=== PATIENT | female | born 1970 | race Caucasian/White ===

== ENCOUNTER 2021-05-06 08:43 | Outpatient (CLI) | payer OTHER ==
--- NOTE | 2021-05-06 10:36 | Ultrasound Report ---
PROCEDURE: Abdomen Complete INDICATIONS: ABDOMINAL DISTENTION, ABD PAIN TECHNIQUE: Real-time scanning was performed of the abdominal and retroperitoneal organs, with image documentatio n. COMPARISON: None. FINDINGS: Liver: Liver is normal in size and homogeneous in echotexture. Gallbladder: No gallbladder wall thickening or pericholecystic fluid. No shadowing gallstones. Biliary ducts: Intrahepatic bile ducts are non-dilated. Extrahepatic bile duct caliber measures 4.4 mm. Normal is 6-7 mm or less in diameter, or 10 mm or less post-cholecystectomy. Pancreas: Visualized portions of the pancreas are sonographically normal. Spleen: Spleen is normal in size and homogeneous in echotexture. Kidneys: Kidneys are normal in size and echotexture. Right kidney measures 10.5 cm long; left kidne y measures 10.2 cm long. No hydronephrosis or nephrolithiasis. No solid masses. Aorta: Visualized aorta is normal in caliber at less than 3 cm. Iliacs: Proximal common iliac arteries are normal in caliber at less than 2.5 cm. IVC: Intrahepatic inferior vena cava is patent. Miscellaneous: No free abdominal fluid. IMPRESSION: No significant abnormality. Reviewed by: Patric Hannah MD on 05/06/2021 10:34 AM PDT Approved by: Patric Hannah MD on 05/06/2021 10:34 AM PDT Station ID: [id number]
--- NOTE | 2021-05-06 11:49 | Ultrasound Report ---
PROCEDURE: Pelvic w/Transvaginal INDICATIONS: LOWER PELVIC PAIN AND BLOATING TECHNIQUE: Real-time scanning was performed of the pelvic organs, with image documentation. Additional endovagi nal scanning was necessary due to incomplete visualization of the adnexal and endometrial structures by transabdominal scanning. COMPARISON: None. TECHNIQUE: Transabdominal and endovaginal sonographic evaluation of the pelvis was performed. FINDINGS: UTERUS: Anteverted, coarsened echotexture, and measures 9.7 x 5 x 6.9 cm. Prominence of the endometri al stripe, measuring up to 14.8 mm. Small amount of fluid is seen within the cervical canal. Hypoecho ic lesions are seen in the cervix, compatible with nabothian cyst. RIGHT OVARY: 2.6 x 1.1 x 1.9 cm. Color-flow projects over the ovarian tissue. LEFT OVARY: 2.7 x 1.6 x 1.8 cm. Color-flow projects over the ovarian tissue. Hypoechoic lesion within the ovary, measuring up to 1.3 cm, compatible with a cyst. OTHER: None. IMPRESSION: 1.No significant sonographic abnormality. Reviewed by: Patric Hannah MD on 05/06/2021 11:48 AM PDT Approved by: Patric Hannah MD on 05/06/2021 11:48 AM PDT Station ID: [id number]
== END 2021-05-06 08:44 | disposition home or self-care (01) ==
LOC: DI 08:43
PROVIDERS: ATTEND Internal Medicine Gastroenterology
DX: R14.0 Abdominal distension (gaseous) (principal); R10.9 Unspecified abdominal pain

== ENCOUNTER 2022-07-30 09:24 | Outpatient (CLI) | payer OTHER ==
[2022-07-30 09:38] LABS: BASOPHILS % (AUTO) 0.7 %; EOSINOPHILS # (AUTO) 0.5 10^3/uL (0.0-0.7); EOSINOPHILS % (AUTO) 8.3 %; HCT - HEMATOCRIT 38.2 % (37.0-47.0); HGB - HEMOGLOBIN 12.2 g/dL (12.0-16.0); LYMPHOCYTES # (AUTO) 2.4 10^3/uL (1.5-3.5); LYMPHOCYTES % (AUTO) 40.8 %; MEAN CORPUSCULAR HEMOGLOBIN 26.2 pg (27.0-31.0); MEAN CORPUSCULAR HGB CONC 31.9 g/dL (32.0-36.0); MONOCYTES # (AUTO) 0.4 10^3/uL (0.0-1.0); MONOCYTES % (AUTO) 6.9 %; NEUTROPHILS # (AUTO) 2.5 10^3/uL (1.5-6.6); PLT - PLATELET COUNT 308 10^3/uL (130-450); RED BLOOD COUNT 4.66 10^6/uL (4.20-5.40); RED CELL DISTRIBUTION WIDTH 14.7 % (12.0-15.0); WHITE BLOOD COUNT 5.8 x10^3/uL (4.8-10.8)
[2022-07-30 09:58] LABS: ALBUMIN 4.1 g/dL (3.2-5.5); ALBUMIN/GLOBULIN RATIO 1.3 (1.0-2.2); ALKALINE PHOSPHATASE 63 IU/L (42-121); ALT ALANINE AMINOTRANSFERASE 21 IU/L (10-60); AST ASPARTATE AMINOTRANSFERASE 24 IU/L (10-42); BILIRUBIN,TOTAL 0.8 mg/dL (0.2-1.0); BUN - BLOOD UREA NITROGEN 16 mg/dL (6-20); CALCIUM 8.5 mg/dL (8.5-10.3); CARBON DIOXIDE - CO2 26 mmol/L (21-32); CHLORIDE 98 mmol/L (101-111); CREATININE 0.9 mg/dL (0.4-1.0); GFR - MDRD 66 (>89); GLUCOSE 97 mg/dL (70-100); POTASSIUM 3.8 mmol/L (3.5-5.0); SODIUM 132 mmol/L (135-145); TOTAL PROTEIN 7.2 g/dL (6.7-8.2)
[2022-07-30 10:00] LABS: CRP - C-REACTIVE PROTEIN < 1.0 mg/dL (0-1.0)
== END 2022-07-30 09:25 | disposition home or self-care (01) ==
LOC: LAB 09:24
PROVIDERS: ATTEND Nurse Practitioner
DX: M79.89 Other specified soft tissue disorders (principal)
CPT/HCPCS: 36415; 80053; 83880; 85025; 85651; 86140

== ENCOUNTER 2022-08-25 10:13 | Outpatient (CLI) | payer OTHER | END 2022-08-25 10:14 | disposition short-term general hospital (02) | LOC: EMS 10:13 | DX: R07.89 Other chest pain (principal); R68.84 Jaw pain; M54.2 Cervicalgia; R06.02 Shortness of breath; R03.0 Elevated blood-pressure reading, without diagnosis of hypertension | CPT/HCPCS: A0425; A0427 ==

== ENCOUNTER 2022-10-02 09:52 | Outpatient (CLI) | payer OTHER ==
--- NOTE | 2022-10-05 11:15 | Mammography Report ---
BILATERAL DIGITAL SCREENING MAMMOGRAM 3D/2D: 10/02/2022 CLINICAL: Routine screening. Baseline exam. No prior exams were available for comparison. There are scattered areas of fibroglandular density in both breasts (category b / 25%-50% glandular t issue). No significant masses, calcifications, or other findings are seen in either breast. IMPRESSION: NEGATIVE There is no mammographic evidence of malignancy. A 1 year screening mammogram is recommended. This exam was interpreted at Station ID: [id number]. NOTE: For mammograms, a report in lay terms will be sent to the patient. Approximately 15% of breast malignancies will not be visualized mammographically. In the management of a palpable breast mass, a negative mammogram must not discourage biopsy of a clinically suspicious lesion. Electronically Signed By: Nigel al/sushila:10/02/2022 16:29:13 letter sent: No_Letter ACR BI-RADS Category 1: Negative 3341F PARENCHYMAL PATTERN: (A) - The breast(s) demonstrate(s) scattered fibroglandular densities. BI-RADS CATEGORY: (1) - 1 Mammogram [id number] 1 year screening LATERALITY: (B)
== END 2022-10-02 09:53 | disposition home or self-care (01) ==
LOC: DI 09:52
PROVIDERS: ATTEND Physician Assistant
DX: Z12.31 Encounter for screening mammogram for malignant neoplasm of breast (principal)

== ENCOUNTER 2023-01-21 10:06 | Outpatient (CLI) | payer OTHER ==
--- NOTE | 2023-01-21 16:58 | Ultrasound Report ---
PROCEDURE: Pelvic w/Transvaginal INDICATIONS: ABN UTERINE BLEEDING TECHNIQUE: Real-time scanning was performed of the pelvic organs, with image documentation. Additional endovagi nal scanning was necessary due to incomplete visualization of the adnexal and endometrial structures by transabdominal scanning. COMPARISON: 05/06/2021. FINDINGS: Uterus: Uterus is retroverted and normal in size at 9.2 x 5.2 x 6.0 cm. The myometrium is heterogen eous. The endometrium measures 11.5 mm in combined thickness. No fibroids Ovaries: The right ovary measures 2.1 x 1.2 x 2.1 cm, with a calculated ovarian volume of 2.8 cc. T he left ovary measures 2.2 x 1.9 x 1.2 cm, with a calculated ovarian volume of 2.6 cc. The ovaries h ave a normal sonographic appearance. Less than 12 follicles can be seen in each ovary. No adnexal m asses are seen. No cystic lesions measuring greater than 3 cm. Other: No pathologic free abdominal or pelvic fluid. IMPRESSION: Prominent endometrium measuring 11.5 mm. Significance depends on whether or not the patient is postme nopausal. Reviewed by: Sung Adrian MD on 01/21/2023 4:57 PM PDT Approved by: uSng Adrian MD on 01/21/2023 4:57 PM PDT Station ID: [id number]
== END 2023-01-21 10:07 | disposition home or self-care (01) ==
LOC: DI 10:06
PROVIDERS: ATTEND Student in an Organized Health Care Education/Training Program
DX: N93.9 Abnormal uterine and vaginal bleeding, unspecified (principal); R93.89 Abnormal findings on diagnostic imaging of other specified body structures

== ENCOUNTER 2023-11-17 08:00 | Outpatient (CLI) | payer OTHER ==
--- NOTE | 2023-11-17 11:17 | XRAY Report ---
PROCEDURE: Ankle 3+V RT INDICATIONS: SPRAIN OF RIGHT ANKLE TECHNIQUE: 3 views of the ankle were acquired. COMPARISON: None. FINDINGS: Bones: No fractures or dislocations. Ankle mortise is normally aligned on nonweightbearing view. N o suspicious bony lesions. Soft tissues: No tibiotalar joint effusion. Achilles tendon appears normal. IMPRESSION: No acute bony abnormality. If there remains a high clinical concern for fracture, consider cross-sect ional imaging now. If pain persists, consider repeat x-ray in 10-14 days or cross-sectional imaging. Reviewed by: Dedrick Finch MD on 11/17/2023 11:16 AM PDT Approved by: Dedrick Finch MD on 11/17/2023 11:16 AM PDT Station ID: [id number]
== END 2023-11-17 23:59 | disposition home or self-care (01) ==
LOC: DI.S 08:00
PROVIDERS: ATTEND Emergency Medicine
DX: S93.411A Sprain of calcaneofibular ligament of right ankle, initial encounter (principal)

== ENCOUNTER 2024-04-04 11:14 | Outpatient (CLI) | payer OTHER ==
--- NOTE | 2024-04-05 11:27 | Mammography Report ---
BILATERAL DIGITAL SCREENING MAMMOGRAM 3D/2D: 04/04/2024 CLINICAL: Routine screening. Comparison is made to exam dated: 10/02/2022 mammogram - [facility]. There are scattered areas of fibroglandular density (category b / 25%-50% glandular tissue). No significant masses, calcifications, or other findings are seen in either breast. There has been no significant interval change. IMPRESSION: NEGATIVE There is no mammographic evidence of malignancy. A 1 year screening mammogram is recommended. Based on the Tyrer Cuzick model (a risk assessment model) the patient's lifetime risk is 16.5% and he r 10 year risk is 4.9%. According to the ACR, ACS, and NCCN guidelines, an annual breast MRI exam bashir ng with mammogram is recommended if the patient's lifetime risk is 20% or greater. This exam was interpreted at Station ID: [id number]. NOTE: For mammograms, a report in lay terms will be sent to the patient. Approximately 15% of breast malignancies will not be visualized mammographically. In the management of a palpable breast mass, a negative mammogram must not discourage biopsy of a clinically suspicious lesion. Electronically Signed By: Faina davis/sushila:04/04/2024 17:10:51 letter sent: No_Letter ACR BI-RADS Category 1: Negative 3341F PARENCHYMAL PATTERN: (A) - The breast(s) demonstrate(s) scattered fibroglandular densities. BI-RADS CATEGORY: (1) - 1 RECOMMENDATION: (ANNUAL) - Recommend routine annual screening mammography. [id number] 1 year screening LATERALITY: (B)
== END 2024-04-04 11:15 | disposition home or self-care (01) ==
LOC: DI 11:14
PROVIDERS: ATTEND Nurse Practitioner Family
DX: Z12.31 Encounter for screening mammogram for malignant neoplasm of breast (principal)